=== PATIENT | female | born 1955 | race Caucasian/White ===

== ENCOUNTER → 2019-02-14 | Outpatient (CLI) | payer MEDICARE ==
--- NOTE | 2019-02-14 15:09 | REP ---
MRI of the orbits without and with IV contrast: History: Lesion in the left upper eyelid. Lateral aspect. Rule out dermoid cyst. Contrast enhancement dose: 16 mL of intravenous ProHance. MR technique: Axial, coronal, and sagittal imaging planes utilized. T1 and T2-weighted scans were obtained with and without fat saturation. Pre and postcontrast imaging is included. MRI findings: There is a 2.2 cm mucous retention cyst in the left maxillary sinus. The paranasal sinuses are otherwise clear. Visualized intracranial structures are unremarkable. The deep facial soft tissues are normal and symmetric. There is no evidence of intraconal or extraconal intraorbital mass. There is a focal asymmetric area of tissue in the preseptal soft tissues lateral aspect of the left orbit at the level of the ocular lens and globe. This shows low T1 and slightly increased T2 signal on precontrast images. Postcontrast images demonstrate enhancement. It appears to be along the anterior margin of the lacrimal apparatus. On axial MR images the enhancing area measures 5 mm in greatest oblique dimension parallel to the adjacent globe by 2.5 mm in greatest thickness. It is not visualized on sagittal or coronal postcontrast images. Ocular globes themselves appear intact. Extraocular muscles are unremarkable. No vascular abnormality is seen. Impression: Nonspecific 5 mm enhancing nodule in the preseptal soft tissues laterally on the left. Electronically Signed by Parish Pearl MD 02/14/2019 04:24 P
== END ==
LOC: M PLARAD 10:55
PROVIDERS: ATTEND Ophthalmology
DX: H02.824 Cysts of left upper eyelid (principal)